=== PATIENT | male | born 1965 | race Caucasian/White ===

== ENCOUNTER 2016-03-13 05:52 | Inpatient (IN) | payer BC ==
[2016-03-21 12:30] LABS: ABSOLUTE BASOPHILS # (AUTO) 0.1 10^3/uL (0.0-0.2); ABSOLUTE EOSINOPHILS # (AUTO) 0.1 10^3/uL (0.0-0.6); ABSOLUTE LYMPHOCYTES (AUTO) 1.6 10^3/uL (0.5-4.7); ABSOLUTE MONOCYTES (AUTO) 0.7 10^3/uL (0.1-1.4); ABSOLUTE NEUT (AUTO) 5.5 10^3/uL (1.7-8.2); BASOPHILS % (AUTO) 0.9 % (0-2); EOSINOPHILS % (AUTO) 1.5 % (0-6); HEMATOCRIT 49.6 % (37.9-51.0); HEMOGLOBIN 17.3 g/dL (13.5-17.0); HGB HCT DIFFERENCE 2.3; LYMPHOCYTES % (AUTO) 20.2 % (13-45); MEAN CORPUSCULAR HEMOGLOBIN 29.9 pg (27.0-33.4); MEAN CORPUSCULAR HGB CONC 34.9 g/dL (32.0-36.0); MEAN CORPUSCULAR VOLUME 86 fl (80-97); MONOCYTES % (AUTO) 9.3 % (3-13); RED BLOOD COUNT 5.78 10^6/uL (4.35-5.55); RED CELL DISTRIBUTION WIDTH 12.6 % (11.5-14.0); SEGMENTED NEUTROPHILS % (AUTO) 68.1 % (42-78)
[2016-03-21 13:06] LABS: ANION GAP 13 (5-19); BLOOD UREA NITROGEN 17 mg/dL (7-20); CALCIUM 9.8 mg/dL (8.4-10.2); CARBON DIOXIDE 30 mmol/L (22-30); CHLORIDE 99 mmol/L (98-107); CREATININE RESULT 0.87 mg/dL (0.52-1.25); GLUCOSE 88 mg/dL (75-110); POTASSIUM 4.8 mmol/L (3.6-5.0)
--- NOTE | 2016-03-22 10:20 | EKG REPORT ---
SEVERITY:- ABNORMAL ECG - SINUS RHYTHM PROBABLE INFERIOR INFARCT, AGE INDETERMINATE : Confirmed by: Joan Gomez 22-Mar-2016 10:19:18
[2016-03-27] MEDS ORDERED: DEXTROSE 5%-LACTATED RINGERS 1,000 ML IV PRN (05:00)
[2016-03-27] MEDS ORDERED: LIDOCAINE 0.5% INJ-PF (5 MG/ML) 50 ML SDV SUBCUT PRN (05:00)
[2016-03-27] MEDS ORDERED: LACTATED RINGERS 1000 ML IV PRN (05:00)
[2016-03-27] MEDS ORDERED: AMPICILLIN SODIUM/SULBACTAM NA 3 GM in NORMAL SALINE 100 ML IV SCH (05:00)
[2016-03-27] MEDS ORDERED: AMPICILLIN SOD/SULBACTAM 3 GM VIAL ONE ×2 (05:32)
[2016-03-27] MEDS ORDERED: BUPIVACAINE HCL 0.25 % INJ/PF (2.5 MG/1 ML) 30 ML VIAL ONE (06:59)
[2016-03-27] MEDS ORDERED: BUPIVACAINE INJ/PF LIPOSOME/PF 266 MG/20 ML SDV ONE (06:59)
[2016-03-27] MEDS ORDERED: FENTANYL CITRATE INJ/PF 250 MCG/5 ML AMPULE ONE (07:07)
[2016-03-27] MEDS ORDERED: HYDROMORPHONE HCL INJ/PF 2 MG/ML AMPULE ONE (07:07)
[2016-03-27] MEDS ORDERED: EPHEDRINE SULFATE INJ 50 MG/1 ML AMPULE ONE (07:08)
[2016-03-27] MEDS ORDERED: MIDAZOLAM 2 MG/2 ML INJ ONE (07:08)
[2016-03-27] MEDS ORDERED: DEXMEDETOMIDINE INJ 80 MCG/20 ML VIAL IV ONE (07:08)
[2016-03-27] MEDS ORDERED: ACETAMINOPHEN 100 ML IV ONE (07:08)
[2016-03-27] MEDS ORDERED: PROPOFOL INJ 200 MG/20 ML VIAL IV ONE (07:08)
[2016-03-27] MEDS ORDERED: MEPERIDINE HCL/PF INJ 25 MG/1 ML DISP.SYRIN IV PRN ×2 (08:32→13:39)
[2016-03-27] MEDS ORDERED: OXYCODONE-ACETAMINOPHEN 5-325 MG TABLET PO PRN ×4 (08:32→13:39)
[2016-03-27] MEDS ORDERED: MORPHINE SULFATE 10 MG/ML INJ IV PRN ×2 (08:32→13:39)
[2016-03-27] MEDS ORDERED: PROMETHAZINE HCL INJ 25 MG/1 ML VIAL IV PRN ×4 (08:32→13:39)
[2016-03-27] MEDS ORDERED: FENTANYL CITRATE INJ/PF 100 MCG/2 ML AMPUL IV PRN ×6 (08:32→13:39)
[2016-03-27] MEDS ORDERED: DIPHENHYDRAMINE HCL 50 MG/ML VIAL IV PRN ×2 (08:32→13:39)
[2016-03-27] MEDS ORDERED: FUROSEMIDE INJ/PF 40 MG/4 ML SDV ONE (12:51)
[2016-03-27] MEDS ORDERED: FENTANYL CITRATE INJ/PF 100 MCG/2 ML AMPUL ONE (12:55)
[2016-03-27] MEDS ORDERED: PHARMACY COMMUNICATION ORDER MC NR (13:00)
--- NOTE | 2016-03-27 13:00 | Operative Report ---
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 Laparoscopic extended right hemicolectomy. 2. Partial omentectomy. 3. Ilio transverse stapled anastomosis. SURGEON: JUAN SESAY SAS CLINICAL PROGRAMMER: TO HAMMOND ANESTHESIA: GA TISSUE REMOVED OR ALTERED: Right colon with mesial colon and appendix attached COMPLICATIONS: None ESTIMATED BLOOD LOSS: 200 mL INTRAOPERATIVE FINDINGS: See below PROCEDURE: Note: Dr. Noble Parrish provided assistance during the conversion to hand assisted and open colonic mobilization and omentectomy The patient was seen in the preoperative holding area, cleared for general anesthesia, taken to the operating room where general anesthesia was induced. The patient was prepped in the supine position arms at side and legs straight. The abdomen was exposed, hair previously clipped, and prepped and draped from the nipples to the proximal thighs. Surgical plan and surgical timeout were conducted. The abdomen is found to be scaphoid. We approached the abdomen to the left mid to upper quadrant with a small incision. The Veress needle was inserted peritoneal cavity. Pneumoperitoneum was established. The needle was removed and a 5 mm ports inserted and a 5 mm videoscope was inserted, which was a 5 mm flexible scope. The findings were significant for very generous omentum, partially stuck to the right upper quadrant in the vicinity of the hepatic flexure. 3 additional ports were placed one of the umbilicus, one in the left lower quadrant, and one in the supraumbilical position. With graspers, we elevated the omentum and could detect the blue dye in the hepatic flexure region confirming the location of the tumor. With the patient in a Trendelenburg position tilted to the left, we mobilized the small bowel out of the center and pelvic region. We proceeded to perform the right hemicolectomy using the medial approach first, specifically by opening up the retroperitoneum proximal to the ileocolic vessels. Using combination of blunt and LigaSure dissection, we were able to get into the appropriate retroperitoneal plane, and opened up the medial space all the way up to the duodenum. The dissection brought the field of view over the anterior surface of the second portion of the duodenum. We swept the right colon cephalad and laterally so as to maximize the extent of the retroperitoneal dissection. We repositioned our graspers and scope and now opened up the reflection distal and posterior to the cecum. The appendix was mobilized along the same plane. We then opened up the white line of Toldt which had some adhesions midway up the right paracolic gutter . We took the level of the dissection all the way up to the hepatic flexure. By grasping the omentum which was very generous and this area and retracting it caudad, we were able to get around the hepatocolic colonic ligaments. We now turned our attention to the gastro- colic omentum. This is the portion of the patient's enemy which posed the greatest difficulty. The reason for the difficulty was the near large size of the greater omentum, as well as the of the normal atomic planes between the gastrocolic tissue, and the transverse mesocolon. We spent a fair amount of time dividing the redundant fatty tissue between the greater curvature of the stomach distally, and the transverse colon. Eventually we are able to take the level of dissection to the patient's right and meet up with the dissection from the previous hepatic flexure take down. Unfortunately however the omentum was so redundant that opening up the transverse colon from the omentum was extremely difficult. At this point Dr. Dickey came into the room and elected to insert a hand port the 5 mm port at the umbilicus was removed, and incision opened cephalad and caudad above and a low the umbilicus. The hand-held wound Fechter, and overlying Venkat CO were affixed into the anterior abdominal wall successfully. Dr. Post spent a fair amount of time now attempting to separate the transverse colon from the omentum but again found this exceedingly difficult because of the redundancy of the tissue, and now the floppy right colon to the previously mobilized. This reason we went on and extended our midline incision after taking out the hand-held port. We Eviscerated the right colon, and felt that it was sufficiently mobilized proximally, but distally at the level of the proximal transverse colon, there was inadequate mobilization. Therefore to facilitate the dissection, we performed a partial omentectomy and this was using the ligature device, 3-0 Vicryl ties between clamps. We were now able to comfortably get around the transverse colon and elevate the remnant gastrocolic tissue so as to freely mobilize the proximal transverse colon. We able to completely eviscerate the right colon and the proximal transverse colon through our incision. Now divided the terminal ileum with a single firing of CLARITA 55 stapler, and found a suitable site for division of the transverse colon just at the middle colic vessels likely including the right branch of the middle colic vessel. Colon was divided with a CLARITA-75 stapler. Prior to this maneuver, we did encounter bleeding from a branch of the superior mesenteric vein which was successfully managed with the application of 3 large clips. He now had the specimen suspended from all of its vascular pedicles including the ileocolic, the middle colic in the right branch of the middle colic. All 3 of these pedicles were taken high so as to include a substantial portion of the attached mesentery. All pedicles were taken between clamps and 2-0 Vicryl ties. The specimen was inspected on the back table, then sent to pathology where Dr. Sanchez confirmed we had the tumor with good proximal distal margins. Hemostasis was excellent at this point. We brought the terminal ileum adjacent to the mid transverse colon and performed a [id number] functional end-to-end anastomosis using the CLARITA 55 stapler and closing the colotomy and enterotomy with a single firing of the TA 60 stapler. The small mesenteric defect was closed with 0 Vicryl suture We returned the anastomosis to the peritoneal cavity. Sponge and needle counts correct. There was no mechanical bleeding in the peritoneal cavity or from the anastomosis. Of note prior to completing the anastomosis, Dr. Mcdaniel insert did area carefully open the retroperitoneum inferior to our ileocolic dissection to visualize the right ureter to ensure it was out of harm's way. In fact was in situ, unharmed and not part of the previous dissection. The patient made urine throughout the case and there was no hematuria. At this point felt the operation was complete. Sponge and counts are correct. The midline incision was closed with 2 double-stranded #1 PDS sutures, and all incisions closed with sherrill, and disease of dilute Exparel was injected into subcutaneous tissues. Abdominal binder was applied, postop procedure was extubated and taken recovery in stable consult dictating on Jonny Brown. The physician title i instructional assistant, Ms. Hammond, provided assistance during this case by: Assisting and port insertion, retracting tissue, instillation of local anesthesia and closure of skin incisions.
[2016-03-27] MEDS ORDERED: FENTANYL CITRATE INJ/PF 100 MCG/2 ML AMPUL INJ ONE (13:07)
[2016-03-27] MEDS ORDERED: ROCURONIUM BROMIDE INJ 50 MG/5 ML VIAL IV ONE (14:25)
[2016-03-27] MEDS ORDERED: PHENYLEPHRINE HCL INJ/PF 10 MG/1 ML SDV ONE (14:25)
[2016-03-27] MEDS ORDERED: ONDANSETRON HCL INJ/PF 4 MG/2 ML SDV ONE (14:25)
[2016-03-27] MEDS ORDERED: SUCCINYLCHOLINE CHLORIDE INJ 200 MG/10 ML VIAL ONE (14:25)
[2016-03-27] MEDS ORDERED: NEOSTIGMINE METHYLSULFATE 10 MG/10 ML VIAL ONE (14:25)
[2016-03-27] MEDS ORDERED: GLYCOPYRROLATE INJ 0.4 MG/2 ML VIAL ONE (14:25)
[2016-03-27] MEDS ORDERED: DEXAMETHASONE SOD PHOSPHATE INJ 4 MG/1 ML VIAL ONE (14:25)
[2016-03-27] MEDS: KETOROLAC TROMETHAMINE INJ/PF 30 MG/1 ML SDV IV PRN (17:05)
[2016-03-27] MEDS: AMPICILLIN SODIUM/SULBACTAM NA 3 GM in NORMAL SALINE 100 ML IV SCH ×2 (17:06→21:32)
[2016-03-27] MEDS: ONDANSETRON HCL INJ/PF 4 MG/2 ML SDV IV PRN (17:38)
[2016-03-27] MEDS: MORPHINE SULFATE 10 MG/ML INJ IV PRN ×2 (19:34→23:25)
[2016-03-28] MEDS: MORPHINE SULFATE 10 MG/ML INJ IV PRN ×2 (02:16→06:00)
[2016-03-28] MEDS: AMPICILLIN SODIUM/SULBACTAM NA 3 GM in NORMAL SALINE 100 ML IV SCH ×3 (05:55→21:26)
[2016-03-28] MEDS: KETOROLAC TROMETHAMINE INJ/PF 30 MG/1 ML SDV IV PRN ×3 (07:47→20:16)
[2016-03-28] MEDS ORDERED: DEXTROSE 5%-LACTATED RINGERS 1,000 ML IV PRN (07:58)
[2016-03-28] MEDS ORDERED: MORPHINE SULFATE 10 MG/ML INJ IV PRN (08:00)
--- NOTE | 2016-03-28 08:04 | PDOC PROGRESS REPORT ---
Subjective Progress Note for:: 03/28/16 Subjective:: Patient reporting some abdominal pain, abdominal wall spasms. Physical Exam Vital Signs: Temp Pulse Resp BP Pulse Ox 98.3 F 104 H 16 140/87 H 96 03/27/16 23:45 03/27/16 23:45 03/27/16 23:45 03/27/16 23:45 03/27/16 23:45 Intake & Output 03/27/16 03/28/16 03/29/16 06:59 06:59 06:59 Intake Total 6492 Output Total 1262 Balance 5230 Weight 86.2 kg General appearance: PRESENT: no acute distress GI/Abdominal exam: PRESENT: other - Binder in place; appropriate tenderness. Results Laboratory Results: 03/21/16 10:47 03/27/16 05:50 03/27/16 05:50 Potassium 4.1 Impressions: Chest X-Ray 03/22/16 14:40 IMPRESSION: NO SIGNIFICANT RADIOGRAPHIC FINDING IN THE CHEST. Assessment & Plan - Diagnosis (1) Colon carcinoma Is this a current diagnosis for this admission?: YesPlan: 1. Patient is one day status post laparoscopic hand-assisted extended right hemicolectomy, doing well, no complications thus far. 2. We will plan to discontinue Arnett catheter, discontinued nasogastric tube, start surgical sips slowly. He can ambulate. 3. My colleagues Dr. Post, and Dr. Hines will be cross covering over the next few days, explained this to patient. - Time Time Spent with patient: 15-24 minutes
[2016-03-28] MEDS: ONDANSETRON HCL INJ/PF 4 MG/2 ML SDV IV PRN (17:58)
[2016-03-29] MEDS: KETOROLAC TROMETHAMINE INJ/PF 30 MG/1 ML SDV IV PRN ×2 (02:20→09:03)
[2016-03-29] MEDS: AMPICILLIN SODIUM/SULBACTAM NA 3 GM in NORMAL SALINE 100 ML IV SCH ×3 (06:21→22:28)
[2016-03-29] MEDS: ACETAMINOPHEN 325 MG TABLET PO PRN (16:06)
--- NOTE | 2016-03-29 18:43 | PROGRESS NOTE E ---
Progress Note NAME: ARTURO ARMENTA : 1965 AGE: 50Y DATE: 03/29/2016 ROOM: 415 SUBJECTIVE: The patient is without complaints at this time. He has not had a BM and has not passed flatus as yet. OBJECTIVE: VITAL SIGNS: Vital signs are stable, blood pressure 132/90, pulse 96, temperature 97.8, respirations 17, saturation 96% on room air. LUNGS: Lungs are clear to auscultation bilaterally. CARDIOVASCULAR: Pulses regular. ABDOMEN: The abdomen is soft. Bowel sounds are absent. It is nontender. There is no guarding or rebound. Incisions appear clean, dry and intact. ASSESSMENT: STATUS POST RIGHT HEMICOLECTOMY FOR CARCINOMA OF THE RIGHT COLON. PLAN: Once the patient has bowel function, will start him on clear-liquid diet and advance accordingly. DICTATING PHYSICIAN: NANDA ROPER M.D. [id number] PHY#: [id number] ID: [id number] JOB#: [id number] ACCT: [id number] cc: >
[2016-03-29] MEDS: OXYCODONE-ACETAMINOPHEN 5-325 MG TABLET NG PRN (23:52)
[2016-03-30] MEDS: AMPICILLIN SODIUM/SULBACTAM NA 3 GM in NORMAL SALINE 100 ML IV SCH ×3 (05:19→21:12)
[2016-03-30] MEDS: OXYCODONE-ACETAMINOPHEN 5-325 MG TABLET NG PRN ×2 (09:37→21:12)
[2016-03-30] MEDS: ACETAMINOPHEN 325 MG TABLET PO PRN (16:35)
--- NOTE | 2016-03-30 22:28 | PROGRESS NOTE E ---
Progress Note NAME: ARTURO ARMENTA : 1965 AGE: 50Y DATE: 03/30/2016 ROOM: 415 SUBJECTIVE: The patient has excellent bowel sounds and has passed gas, and reportedly just moments ago has had a bowel movement. OBJECTIVE: VITAL SIGNS: Blood pressure 113/67, temperature 98.3, pulse 112, respirations 18, saturation is 96% on room air. ABDOMEN: The patient's abdomen is soft, flat. Bowel sounds are present. No tenderness noted whatsoever. ASSESSMENT: STATUS POST RIGHT HEMICOLECTOMY FOR CARCINOMA OF RIGHT COLON. PLAN: The patient has been started on diet and will be advanced to a regular diet in the a.m. Anticipate discharge home in a.m. DICTATING PHYSICIAN: NANDA ROPER M.D. [id number] PHY#: [id number] ID: [id number] JOB#: [id number] ACCT: [id number] cc:NANDA ROPER M.D. >
[2016-03-31] MEDS: AMPICILLIN SODIUM/SULBACTAM NA 3 GM in NORMAL SALINE 100 ML IV SCH (05:04)
[2016-03-31 08:08] VITALS: BP 126/81
[2016-03-31] MEDS: OXYCODONE-ACETAMINOPHEN 5-325 MG TABLET NG PRN (08:36)
--- NOTE | 2016-03-31 22:48 | DISCHARGE SUMMARY E ---
Discharge Summary NAME: ARTURO ARMENTA : 1965 AGE: 50Y ADMITTED: 03/27/2016 DISCHARGED: 03/31/2016 DISCHARGE DIAGNOSIS: Status post right hemicolectomy for CA of the colon. HISTORY AND HOSPITAL COURSE: This 50-year-old male was found to have a large villous polyp and mass of the right colon for which a right hemicolectomy was recommended. The patient underwent a right hemicolectomy laparoscopically by Dr. Mcdaniel. The patient's postoperative course was uneventful. He was started on diet on the second postop day and advanced accordingly. The patient's abdomen incision now is clean, dry, and intact with good bowel sounds, good bowel function, and the patient has tolerated meals quite well. The patient is now discharged home and is to return to see Dr. Mcdaniel in the office in 7 to 10 days. DICTATING PHYSICIAN: NANDA ROPER M.D. [id number] PHY#: [id number] ID: [id number] JOB#: [id number] ACCT: [id number] cc:Harley CARY M.D. >
== END 2016-03-31 12:09 | disposition home or self-care (01) | DRG 331 ==
LOC: INOR 03-27 05:30 → EDSTATUS 03-27 07:30 → INOR 03-27 07:36 → UNDOADMIN 03-27 07:36 → 4N 03-27 14:31
PROVIDERS: ADMIT Surgery; ATTEND Surgery
PROC: 0D1B0ZL Bypass Ileum to Transverse Colon, Open Approach (ICD-10-PCS; 2016-03-27)
PROC: 0DBS0ZZ (ICD-10-PCS; 2016-03-27)
PROC: 0DTF0ZZ Resection of Right Large Intestine, Open Approach (ICD-10-PCS; principal; 2016-03-27 07:30)
DX: C18.3 Malignant neoplasm of hepatic flexure (principal); I10 Essential (primary) hypertension; K64.8 Other hemorrhoids; G47.30 Sleep apnea, unspecified; E78.00 Pure hypercholesterolemia, unspecified; F17.210 Nicotine dependence, cigarettes, uncomplicated; K57.30 Diverticulosis of large intestine without perforation or abscess without bleeding; K21.9 Gastro-esophageal reflux disease without esophagitis; F10.20 Alcohol dependence, uncomplicated
CPT/HCPCS: 36415; 71020; 790; 80048; 84132; 85025; 93005; 93010; C9290; J0131; J0295; J0330; J1100; J1170; J1885; J1940; J2250; J2270; J2370; J2405; J2704; J3010; J3490; J7120

== ENCOUNTER → 2017-02-27 | Outpatient (CLI) | payer BC ==
--- NOTE | 2017-02-27 12:11 | RADIOLOGY REPORT (SQ) ---
EXAM DESCRIPTION: CT CHEST WITH; CT ABD/PELVIS WITH IV ORAL COMPLETED DATE/TIME: 02/27/2017 8:21 am REASON FOR STUDY: COLON CA (C18.2) C18.2 MALIGNANT NEOPLASM OF ASCENDING COLON COMPARISON: CT abdomen pelvis 02/29/2016 CONTRAST TYPE AND DOSE: contrast/concentration: Isovue 370.00 mg/ml; Total Contrast Delivered: 86.0 ml; Total Saline Delivered: 67.0 ml RENAL FUNCTION: Creatinine 0.7 TECHNIQUE: CT scan of the chest performed using helical scanning technique with dynamic intravenous contrast injection. Images reviewed with lung, soft tissue and bone windows. Reconstructed coronal a nd sagittal MPR images reviewed. All images stored on PACS. CT scan of the abdomen and pelvis performed with intravenous and with oral contrastusing helical scan ji technique with dynamic intravenous contrast injection. Images reviewed with lung, soft tissue a nd bone windows. Reconstructed coronal and sagittal MPR images reviewed. Delayed images for evaluat ion of the urinary system also acquired and evaluated. All images stored on PACS. All CT scanners at this facility use dose modulation, iterative reconstruction, and/or weight based d osing when appropriate to reduce radiation dose to as low as reasonably achievable (ALARA). [facility]: Dose Right [facility]: CareDose [facility]: Dose Right [facility]: Teradose 4D [facility]: Smart [employer] RADIATION DOSE: CT Rad equipment meets quality standard of care and radiation dose reduction techniq ues were employed. CTDIvol: 5.9 - 6.1 mGy. DLP: 920 mGy-cm. . LIMITATIONS: None. FINDINGS: CHEST: LUNGS AND PLEURA: Benign calcified granuloma right middle lobe axial image 61. Lungs are otherwise u nremarkable. No pleural effusions or pneumothorax. HILAR AND MEDIASTINAL STRUCTURES: No identified masses or abnormal nodes. HEART AND VASCULAR STRUCTURES: No aneurysm or dissection. No central pulmonary emboli. No pericardi al effusion. HARDWARE: None. THYROID AND OTHER SOFT TISSUES: No masses. No adenopathy. BONES: No significant finding. OTHER: Small retrocardiac hiatal hernia. ABDOMEN AND PELVIS: LIVER: Normal size. No masses. No dilated ducts. SPLEEN: Normal size. No focal lesions. PANCREAS: No masses. No significant calcifications. No adjacent inflammation or peripancreatic fluid collections. Pancreatic duct not dilated. GALLBLADDER: No identified stones by CT criteria. No inflammatory changes to suggest cholecystitis. ADRENAL GLANDS: No significant masses or asymmetry. RIGHT KIDNEY AND URETER: No solid masses. No significant calcification. No hydronephrosis or hydroure ter. LEFT KIDNEY AND URETER: No solid masses. No significant calcification. No hydronephrosis or hydrouret er. AORTA AND VESSELS: No aneurysm. No dissection. Renal arteries, SMA, celiac without stenosis. RETROPERITONEUM: No retroperitoneal adenopathy, hemorrhage or masses. BOWEL AND PERITONEAL CAVITY: No masses or inflammatory changes. No free fluid or peritoneal masses. Post right hemicolectomy. Patient drank oral contrast without CT evidence of bowel obstruction. No ascites. APPENDIX: Surgically absent ABDOMINAL WALL: No masses. No hernias. BONES: No significant or acute findings. PELVIS: No other significant finding. No masses, free fluid, or adenopathy. Delayed images of the u rinary bladder unremarkable. Atrophy right seminal vesicle. IMPRESSION: No CT evidence of metastatic disease over the chest abdomen or pelvis TECHNICAL DOCUMENTATION: JOB ID: [id number] Quality ID # [id number]: Final reports with documentation of one or more dose reduction techniques (e.g., Au tomated exposure control, adjustment of the mA and/or kV according to patient size, use of iterative reconstruction technique) 2010 [employer]- All Rights Reserved
== END ==
LOC: RAD 07:28
PROVIDERS: ATTEND Internal Medicine
DX: C18.2 Malignant neoplasm of ascending colon (principal)
CPT/HCPCS: 71260; 74177; 82565